=== PATIENT | female | born 1995 | race African-American/Black ===

== ENCOUNTER 2023-08-16 09:44 | Emergency (ER) | payer SELFPAY ==
[~2023-08-16] VITALS: Ht 170.2 cm; Wt 133.2 kg
[2023-08-16] MEDS ORDERED: ONDANSETRON HCL INJ 2MG/ML 2ML 2 MG/ML VIAL ONE (10:51)
[2023-08-16] MEDS: KETOROLAC TROMETHAMINE 30 MG/ML VIAL IV STA (10:51)
[2023-08-16] MEDS ORDERED: FAMOTIDINE 20 MG/2 ML VIAL IV ONE (10:51)
[2023-08-16] MEDS: ONDANSETRON HCL INJ 2MG/ML 2ML 2 MG/ML VIAL IV STA (10:52)
[2023-08-16] MEDS: SODIUM CHLORIDE 0.9% 1000ML 1,000 ML IV SCH (10:52)
[2023-08-16] MEDS: FAMOTIDINE 20 MG/2 ML VIAL IV STA (10:52)
[2023-08-16] MEDS ORDERED: IOPAMIDOL 370 MG/ML 100 ML INFUS..BTL INJ ONE (10:57)
[2023-08-16 11:54] VITALS: O2SAT 98
[2023-08-16] MEDS ORDERED: ONDANSETRON ODT4 MG PO (11:57)
[2023-08-16] MEDS ORDERED: PANTOPRAZOLE SO40 MG PO (11:59)
[2023-08-16] MEDS ORDERED: MUCINEX DM ER1 EACH PO (12:00)
== END 2023-08-16 12:20 | disposition home or self-care (01) ==
LOC: FSED 09:47
DX: R05.9 Cough, unspecified (principal); R07.89 Other chest pain; J06.9 Acute upper respiratory infection, unspecified; K29.70 Gastritis, unspecified, without bleeding; R11.2 Nausea with vomiting, unspecified; T50.995A Adverse effect of other drugs, medicaments and biological substances, initial encounter; Z11.52 Encounter for screening for COVID-19
CPT/HCPCS: 0223U; 71260; 74177; 80048; 80076; 81003; 81025; 82553; 83518; 84484; 85025; 85379; 93005; 96374; 96375; 99284; J1885; J2405; J7030; Q9967